=== PATIENT | female | born 2005 | race African-American/Black ===

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

== ENCOUNTER 2023-07-20 14:28 | Outpatient (RCR) | payer BC, MEDICAID, SELFPAY | END 2023-07-29 23:59 | LOC: NS 14:28 | PROVIDERS: Referring Provider Pediatrics; Visit Provider Pediatrics | DX: Z71.3 Dietary counseling and surveillance (principal); E66.01 Morbid (severe) obesity due to excess calories; R63.5 Abnormal weight gain; Z68.42 Body mass index [BMI] 45.0-49.9, adult | CPT/HCPCS: 97802 ==

== ENCOUNTER 2023-08-19 14:14 | Outpatient (RCR) | payer BC, MEDICAID, SELFPAY | END 2023-08-28 23:59 | LOC: NS 14:14 | PROVIDERS: Referring Provider Pediatrics; Visit Provider Pediatrics | DX: Z71.3 Dietary counseling and surveillance (principal); E66.01 Morbid (severe) obesity due to excess calories; Z68.42 Body mass index [BMI] 45.0-49.9, adult; R63.5 Abnormal weight gain | CPT/HCPCS: 97803 ==

== ENCOUNTER 2023-09-28 11:27 | Outpatient (RCR) | payer BC, MEDICAID, SELFPAY | END 2023-09-28 23:59 | LOC: NS 11:27 | PROVIDERS: Referring Provider Pediatrics; Visit Provider Pediatrics | DX: Z71.3 Dietary counseling and surveillance (principal); E66.01 Morbid (severe) obesity due to excess calories; R63.5 Abnormal weight gain; Z68.42 Body mass index [BMI] 45.0-49.9, adult | CPT/HCPCS: 97803 ==

== ENCOUNTER 2023-11-02 10:31 | Outpatient (RCR) | payer BC, SELFPAY | END 2023-11-28 23:59 | LOC: NS 10:31 | PROVIDERS: Referring Provider Pediatrics; Visit Provider Pediatrics | DX: Z71.3 Dietary counseling and surveillance (principal); E66.01 Morbid (severe) obesity due to excess calories; R63.5 Abnormal weight gain; Z68.42 Body mass index [BMI] 45.0-49.9, adult | CPT/HCPCS: 97803 ==